=== PATIENT | female | born 1995 ===

== ENCOUNTER 2017-02-05 14:25 | Inpatient (IN) | payer OTHER ==
[2017-02-05] MEDS ORDERED: MAGNESIUM SULFATE 4 G/100 ML 4 G in PREMIX BAG 1 EACH IV ONE (14:47)
[2017-02-05] MEDS ORDERED: PENICILLIN G POTASSIUM 5 MMU in NS 0.9% (MINI-BAG PLUS) 100 ML IV ONE (15:00)
[2017-02-05] MEDS ORDERED: LACTATED RINGERS 1,000 ML IV SCH (15:00)
[2017-02-05] MEDS ORDERED: MAGNESIUM SULFATE 20 G/500 ML 500 ML IV SCH (15:00)
[2017-02-05] MEDS ORDERED: IV START KIT ONE (15:12)
[2017-02-05] MEDS ORDERED: SODIUM CHLORIDE 0.9% FLUSH 10 ML ONE (15:12)
[2017-02-05 15:32] LABS: ABSOLUTE NEUTROPHIL COUNT 3.5 K/mm3 (1.8-7.7); BASO % 0.7 % (0.2-1.0); EOS % 0.3 % (0.9-2.9); HEMATOCRIT 33.3 % (37.0-47.0); HEMOGLOBIN 10.2 gm/l (12.0-16.0); IMM NEUT% 0.3 % (0-1); LYMPH # 2.2 (1.0-4.8); LYMPH % 36.6 % (15-45); MEAN CELL VOLUME 81.4 fl (81.0-99.0); MEAN CORPUSCULAR HEMOGLOBIN 24.9 pg (27.0-31.0); MEAN CORPUSCULAR HGB CONC 30.6 g/dl (33.0-37.0); MEAN PLATELET VOLUME 12.7 fl (7.4-10.4); MONO # 0.3 (0.0-0.8); MONO % 5.6 % (4-12); NEUT % 56.5 % (43-75); PLATELET COUNT 158 K/mm3 (130-400); RED CELL DISTRIBUTION WIDTH 14.4 % (11.5-14.5)
[2017-02-05 16:00] VITALS: BMI 35.6
[2017-02-05 16:31] LABS: ALB/GLOB RATIO 0.9 (>1.0); CALCIUM 8.6 mg/dL (8.6-10.3); URIC ACID 6.9 mg/dL (2.3-7.6)
--- NOTE | 2017-02-05 17:09 | PCMAN ---
OB Admission Note - History : 2 Term: 0 : 1 Abortions (S&E): 0 Livin Gestational Age (weeks): 37 Days (#/7): 1 Admit Cervical Dilation:: 1 Admit Cervical Effacement (%):: 30 Admit Station:: -3 Admit Presentaton:: cephalic Membrane Status: Intact Contractions: Yes Contraction Frequency:: 6-8 EFW:: 3000 Summary of Course:: 21yo h/o preeclampsia with induction at 36w. Pt has been on low dose ASA for this . Pt has been c/o hand swelling x 3-4 weeks. This week had BP 140/90, 1+ proteinuria. Recheck today 120/66 initially but recheck with machine 152/98. PIH labs done Wednesday - unremarkable except for slightly elevated uric acid at 6.5. Pt has been c/o RIVERA and seeing spots worse in the last 2 days. NST today in office is reactive. - Labs Blood Type: O (+) positive Rubella Status: Immune GBS Status: Positive - Physical Exam General: Afebrile, No Acute Distress Psych/Mental Status: Mood/Affect Appropriate Neurological: Grossly Intact, Alert Lungs: Clear to Auscultation Bilaterally Cardiovascular: Regular Rate and Rhythm Abdomen: Other (efw 3000g) Genitourinary: Other (cx=12/28/3, cephalic, soft, posterior) Extremities: Edema, No Tenderness DTR: Bicep (L): 1+ (Slightly diminished), Bicep (R): 1+ (Slightly diminished), Patellar (L): 1+ (Slightly diminished), Patellar (R): 1+ (Slightly diminished) - Additional Comments Preeclampsia at 37w, increased blood pressure since Wednesday. Pt is also symptomatic. Recommend admission for induction at this time. Check repeat PIH labs. Admission BP is normal. Will observe BP and if worsens to severe range will start magnesium, or if abnormal lab values. Discussed cervical ripening with balloon.
[2017-02-05] MEDS ORDERED: OXYTOCIN 10 UNITS/ML VIAL ONE (19:02)
[2017-02-05] MEDS ORDERED: PUMP TUBING ONE (19:02)
[2017-02-05] MEDS ORDERED: LIDOCAINE Viscous 2% 15 ML UDCUP ONE (19:02)
[2017-02-05] MEDS ORDERED: LIDOCAINE 1% (PRES FREE) 30 ML VIAL ONE (19:02)
[2017-02-05] MEDS ORDERED: MINERAL OIL 25 ML BOT ONE (19:02)
[2017-02-05] MEDS ORDERED: OXYTOCIN IN LR 500 ML IV ONE (19:03)
[2017-02-05] MEDS ORDERED: HYDROXYZINE PAMOATE 50 MG CAPSULE PO ONE (20:08)
--- NOTE | 2017-02-05 20:57 | PDOC36 ---
Provider Note Subject: Induction note Note: BP improved and wnl now will wait for BP increase to start on MgSO4 FHT is reassuring, reactive Cook catheter with 60cc sterile water placed. Cx=12/28/3, vtx, soft PIH Labs reviewed urine still pending
[2017-02-06 00:05] LABS: CREATININE,RANDOM URINE 55 mg/dL
[2017-02-06] MEDS: BUTORPHANOL TARTRATE 1 MG/ML VIAL IV PRN ×2 (01:22→10:37)
[2017-02-06] MEDS ORDERED: FENTANYL 100 MCG/2 ML VIAL IV ONE (05:31)
[2017-02-06] MEDS ORDERED: PENICILLIN G 3 MIL UNIT PREMIX 0 ML IV ONE (08:18)
--- NOTE | 2017-02-06 08:21 | PDOC36 ---
Provider Note Subject: Intrapartum note Note: Pt required stadol / fentanyl o/n was micheline q4 min, now sleeping FHT: 120's, reactive, mod sheyla, no decels TOco: q6-7min Cook balloon was in - removed Cx=6/80/-1, BB start PCN for GBS prophylaxis
[2017-02-06] MEDS: LACTATED RINGERS 1,000 ML IV SCH ×2 (08:28→19:03)
[2017-02-06] MEDS: PENICILLIN G 3 MIL UNIT PREMIX 3 MMU in Premix (D5W) 50 ml 1 EACH IV SCH (08:28)
[2017-02-06] MEDS ORDERED: FENTANYL 100 MCG/2 ML VIAL IV PRN (08:39)
[2017-02-06] MEDS ORDERED: OXYTOCIN IN LR 500 ML IV ONE (09:49)
[2017-02-06] MEDS ORDERED: PENICILLIN G 3 MIL UNIT PREMIX 50 ML IV ONE (12:11)
[2017-02-06] MEDS ORDERED: PENICILLIN G POTASSIUM 5 MMU VIAL ONE (12:17)
[2017-02-06] MEDS ORDERED: NS 0.9% (MINI-BAG PLUS) 100 ML IV ONE (12:19)
[2017-02-06] MEDS ORDERED: OXYTOCIN IN LR 500 ML IV PRN (12:25)
[2017-02-06] MEDS ORDERED: MINERAL OIL 25 ML BOT TP ONE (13:59)
[2017-02-06] MEDS ORDERED: LIDOCAINE 1% (PRES FREE) 30 ML VIAL SUB-Q ONE (13:59)
[2017-02-06] MEDS ORDERED: SENNOSIDES 8.6 MG TABLET PO PRN (14:07)
[2017-02-06] MEDS ORDERED: DOCUSATE SODIUM 100 MG CAPSULE PO PRN (14:07)
[2017-02-06] MEDS ORDERED: LANOLIN 50 APPLIC/7G TUBE TP PRN (14:07)
[2017-02-06] MEDS: OXYCODONE/ACETAMINOPHEN 5/325 MG TABLET PO PRN (14:14)
[2017-02-06] MEDS: IBUPROFEN 800 MG TABLET PO PRN (14:18)
[2017-02-06] MEDS ORDERED: LABETALOL HCL 200 MG TABLET PO ONE (14:26)
[2017-02-06] MEDS ORDERED: MISOPROSTOL 200 MCG TABLET PO ONE (14:26)
[2017-02-06] MEDS ORDERED: MISOPROSTOL 200 MCG TABLET ONE (14:29)
[2017-02-06] MEDS ORDERED: MAGNESIUM SULFATE 4 G/100 ML 4 G in PREMIX BAG 1 EACH IV ONE (15:19)
[2017-02-06] MEDS ORDERED: MAGNESIUM SULFATE 4 G/100 ML 100 ML IV ONE (15:26)
[2017-02-06] MEDS: MAGNESIUM SULFATE 20 G/500 ML 500 ML IV SCH (16:12)
[2017-02-06] MEDS ORDERED: FLU VACC 2016-17 (36MO-64Y)/PF 60 MCG/0.5 ML SYRINGE IM V ONE (16:58)
[2017-02-06] MEDS: BENZOCAINE/MENTHOL 60 APPLIC/BOT TP PRN (17:45)
[2017-02-07] MEDS: MAGNESIUM SULFATE 20 G/500 ML 500 ML IV SCH (01:51)
[2017-02-07] MEDS: LABETALOL HCL 200 MG TABLET PO SCH ×2 (03:23→15:35)
[2017-02-07 06:45] LABS: HEMATOCRIT 27.6 % (37.0-47.0); HEMOGLOBIN 8.7 gm/l (12.0-16.0)
[2017-02-07] MEDS: IBUPROFEN 800 MG TABLET PO PRN ×2 (07:39→15:46)
[2017-02-07] MEDS: LACTATED RINGERS 1,000 ML IV SCH ×2 (09:13→11:16)
--- NOTE | 2017-02-07 10:08 | PDOC44 ---
- Subjective Day: 1 Reports Pain Tolerable (lower back pain), Reports , Reports Tolerating Regular Diet, Reports Other (Pt had elevated BP yesterday , 170/100. Magnesium Sulfate was started. Pt also had heavy bleeding - resolved after 1 hr with oral misoprostol.), Denies Nausea, Denies Vomiting, Denies Fever - Objective Temp Pulse Resp BP Pulse Ox 96.6 F 66 16 127/61 100 02/07/17 09:07 02/07/17 09:07 02/07/17 09:07 02/07/17 09:07 02/07/17 09:07 Lab Results 02/07/17 06:00 Hgb 8.7 L Hct 27.6 L Current Medications Generic Name Dose Route Start Last Admin Trade Name Freq PRN Reason Stop Dose Admin Benzocaine/Menthol 1 applic 02/06/17 14:07 02/06/17 17:45 Dermoplast TP 1 bot PRN PRN Administration Patient Comfort Docusate Sodium 100 mg 02/06/17 14:07 Colace PO DAILY PRN Comfort Emollient Ointment 1 applic 02/06/17 14:07 [id number] TP PRN PRN sore nipples Lactated Ringer's 1,000 mls @ 100 mls/hr 02/06/17 15:30 02/07/17 09:13 Lactated Ringers IV 100 mls/hr .Q10H RAJINDER Administration Magnesium Sulfate 500 mls @ 50 mls/hr 02/06/17 15:45 02/07/17 01:51 Magnesium Sulfate IV 50 mls/hr Q10H RAJINDER Administration 2 G/HR Ibuprofen 800 mg 02/06/17 14:07 02/07/17 07:39 Motrin PO 800 mg Q8H PRN Administration Pain (Mild) Labetalol HCl 200 mg 02/07/17 03:00 02/07/17 03:23 Trandate PO 200 mg Q12H RAJINDER Administration Oxycodone/Acetaminophen 1 - 2 tab 02/06/17 14:07 02/06/17 14:14 Percocet 5/325 PO 1 tab Q4H PRN Administration Pain (Moderate) Senna 17.2 mg 02/06/17 14:07 Senokot PO BEDTIME PRN Comfort Sodium Chloride 10 ml 02/05/17 17:00 02/07/17 07:41 Normal Saline 10ml Flush IV Not Given Q8HR RAJINDER Sodium Chloride 10 ml 02/06/17 14:07 Normal Saline 10ml Flush IV PRN PRN IV Flush - Physical Exam General: Afebrile, No Acute Distress Lungs: Clear to Auscultation Bilaterally Cardiovascular: Regular Rate and Rhythm Fundus: Firm, At Umbilicus Abdomen: No Tenderness, No Distention Deep Tendon Reflexes: Bicep (L): 1+ (Slightly diminished), Bicep (R): 1+ ( Slightly diminished), Patellar (L): 1+ (Slightly diminished), Patellar (R): 1+ ( Slightly diminished) Disposition: Stable (doing well; d/c magnesium after 24hrs. BP is improved. Cont labetalol 200mg bid.)
--- NOTE | 2017-02-07 10:17 | PCMDEL ---
Delivery Note - Delivery Delivery (Date): 02/06/17 Presentation: Cephalic Position: OP Umbilical Cord: 3 Vessel 1 Minute Total: 9 5 Minute Total: 9 Perineum:: 1st degree Suture:: 3-O Chromic Anesthesia/Meds:: lidocaine Comments:: Pt AROM at Rim, then pushed for 10 minutes, was anterior lip. Labored down 15- 20 minutes then resumed pushing. Pt progressed well to FD and started pushing again. Baby delivered to OP. Shoulders delivered easily. Bulb suction applied. Baby delivered to abdomen. After brief delay, and cord milking, cord clamped + cut. Placenta delivered complete with 3VC. 1st degree laceration repaired with 3-O Chromic. EBL = 300cc. Regina delivered in stable condition. Male, 6lbs 7oz, 9/9 apgars.
[2017-02-07] MEDS: PENICILLIN G 3 MIL UNIT PREMIX 3 MMU in Premix (D5W) 50 ml 1 EACH IV SCH ×2 (11:16→11:17)
[2017-02-07] MEDS: OXYCODONE/ACETAMINOPHEN 5/325 MG TABLET PO PRN ×2 (12:16→20:23)
[2017-02-08] MEDS: LACTATED RINGERS 1,000 ML IV SCH ×2 (06:50→06:51)
[2017-02-08 08:52] VITALS: BP 112/57
--- NOTE | 2017-02-08 08:58 | PDOC39B ---
Hospital Course: ADMIT DATE: 02/05/17 DISCHARGE DATE: 02/08/17 ADMISSION DIAGNOSES: 37w , preeclampsia PROCEDURES: Induction of labor, vaginal delivery HISTORY OF PRESENT ILLNESS: 21 year old G2 T0 L1 at 37 weeks 2 days presenting with elevated BP and 2+ proteinuria. Pt was admitted for induction of labor. Cook catheter balloon was placed and pt was having contractions spontaneously. HOSPITAL COURSE: The patient progressed to 6cm overnight. PCN was started for GBS. Subsequently pt was 9cm and AROM - clear fluid. Pt had a normal vaginal delivery. Baby male, 6lbs 7oz, 9/9 apgars. Pt was subsequently started on magnesium and labetalol. Magnesium 24hours and labetalol was discontinued on PPD#2 as BP have normalized. By day of discharge the patient is ambulating, eating, voiding, and passing flatus without difficulty. Pain is controlled and lochia is appropriate. She is []. F/u 1w for repeat BP check. Vital Signs - 8 hr 02/08/17 02/08/17 02:05 08:50 Temperature 98.2 F 98.0 F Pulse Rate 57 62 Respiratory 16 16 Rate Blood Pressure 110/60 112/57 Laboratory Tests 02/05/17 02/05/17 02/07/17 15:18 16:00 06:00 WBC 6.1 RBC 4.09 L Hgb 10.2 L 8.7 L Hct 33.3 L 27.6 L MCV 81.4 MCH 24.9 L MCHC 30.6 L RDW 14.4 Plt Count 158 Neut % (Auto) 56.5 Lymph % (Auto) 36.6 [place] % (Auto) 5.6 Baso % (Auto) 0.7 Absolute Neuts (auto) 3.5 Eosinophils % 0.3 L Sodium 137 Potassium 3.8 Chloride 106 Carbon Dioxide 21 Anion Gap 14 BUN 12 Creatinine 0.6 Estimated GFR 124 H BUN/Creatinine Ratio 20 Glucose 80 Uric Acid 6.9 Calcium 8.6 Total Bilirubin 0.4 AST 41 H ALT 34 Alkaline Phosphatase 327 H Lactate Dehydrogenase 192 Total Protein 6.4 Albumin 3.0 L Globulin 3.4 Albumin/Globulin Ratio 0.9 L Ur Random Creatinine 55 U Random Total Protein 61 Protein/Creatinin Ratio 1109 % Immature Granulocyt 0.3 - Physical Exam Vital Signs: Temp Pulse Resp BP Pulse Ox 98.0 F 62 16 112/57 99 03/13/17 08:50 02/08/17 08:50 02/08/17 08:50 02/08/17 08:50 02/07/17 14:00 - Discharge Plan Prescriptions: Ibuprofen [Motrin] 800 mg PO Q6H PRN #30 tablet PRN Reason: Pain FERROUS SULFATE (65 Fe) [IRON FERROUS SULFATE 325 MG TABLET (SHF)] 325 mg PO DAILY #30 tab Follow-Up: Justin Dsouza MD [Primary Care Provider] - In 7-10 days (for repeat BP)
[2017-02-08] MEDS: BENZOCAINE/MENTHOL 60 APPLIC/BOT TP PRN (10:31)
[2017-02-08] MEDS: IBUPROFEN 800 MG TABLET PO PRN (10:32)
[2017-02-08] MEDS ORDERED: LACTATED RINGERS 1,000 ML ONE (15:04)
== END 2017-02-08 11:40 | disposition home or self-care (01) | DRG 775 ==
LOC: FBC 14:25
PROVIDERS: ADMIT Obstetrics & Gynecology; ATTEND Obstetrics & Gynecology
PROC: 0U7C7ZZ Dilation of Cervix, Via Natural or Artificial Opening (ICD-10-PCS; 2017-02-05)
PROC: 10E0XZZ Delivery of Products of Conception, External Approach (ICD-10-PCS; principal; 2017-02-06)
PROC: 0HQ9XZZ Repair Perineum Skin, External Approach (ICD-10-PCS; 2017-02-06)
PROC: 10907ZC Drainage of Amniotic Fluid, Therapeutic from Products of Conception, Via Natural or Artificial Opening (ICD-10-PCS; 2017-02-06)
DX: O14.94 Unspecified pre-eclampsia, complicating childbirth (principal); O99.824 Streptococcus B carrier state complicating childbirth; O70.0 First degree perineal laceration during delivery; Z37.0 Single live birth; O32.8XX0 Maternal care for other malpresentation of fetus, not applicable or unspecified; Z3A.37 37 weeks gestation of pregnancy; Z79.82 Long term (current) use of aspirin; O09.93 Supervision of high risk pregnancy, unspecified, third trimester

== ENCOUNTER 2017-02-11 11:06 | Outpatient (CLI) | payer OTHER | END 2017-02-11 11:07 | disposition home or self-care (01) | LOC: BABIESSH 11:06 | PROVIDERS: ATTEND Obstetrics & Gynecology | DX: Z39.1 Encounter for care and examination of lactating mother (principal) ==